=== PATIENT | male | born 1985 | race Caucasian/White ===

== ENCOUNTER 2017-08-03 00:52 | Emergency (ER) | payer SELFPAY ==
[~2017-08-03] VITALS: Ht 180.3 cm; Wt 100.7 kg
[2017-08-03 00:56] VITALS: BP 148/99
== END 2017-08-03 02:43 | disposition left against medical advice (07) ==
LOC: EME 00:52
DX: M79.672 Pain in left foot (principal); Z53.21 Procedure and treatment not carried out due to patient leaving prior to being seen by health care provider
CPT/HCPCS: 73630